=== PATIENT | female | born 1995 | race Two or more races ===

== ENCOUNTER 2017-08-05 19:03 | Inpatient (IN) | payer OTHER ==
[2017-08-05] MEDS: Lactated Ringers 1,000 ML IV SCH ×3 (19:35→20:40)
[2017-08-05] MEDS ORDERED: Bupivacaine 0.75%/D5W 2 ML Amp ONE (19:53)
[2017-08-05] MEDS ORDERED: EPINEPHrine 1 MG/ML SDV ONE (19:53)
[2017-08-05] MEDS ORDERED: fentaNYL 100 MCG/2 ML SDV ONE (19:53)
[2017-08-05] MEDS ORDERED: Penicillin G Potassium 5,000,000 Unit Vial ONE (20:15)
[2017-08-05] MEDS ORDERED: Magnesium Sulfate/Water 100 ML ONE (20:28)
[2017-08-05] MEDS ORDERED: Magnesium Sulfate/Water 50 ML ONE (20:30)
--- NOTE | 2017-08-05 20:38 | PCM.PRNOTE ---
- Free Text/Narrative Note: Requested to provide analgesia to pre-term patient in severe pain. Upon entering the room, patient is lying in bedcomplaining of severe abdominal/ pelvic pain and discomfort. Pt is 30 weeks and complete. MD requests IT to help prevent pushing. Procedure was quickly discussed with patient including adverse outcomes and expectations. Pt consented to analgesia, SAB/IT. Pt placed onto left side. Landmarks for SAB/IT were identified and marked. Hands were washed and appropriate PPE was applied. Back was prepped with betadine x3. A sterile, transparent, fenestrated drape was applied. Excess betadine was removed. Using 3 mL of a 1% lidocaine solution, a skin wheel was placed at the L3/L4 interspace. A 24 ga (4 inch) Pencan spinal needle was inserted until positive for CSF. Negative for heme or paresthesias. Injected fentanyl 20 mcg , sufentanil 15 mcg, and 7.5 mg of a 0.75% bupivacaine solution with an epi wash. Pt was placed left lateral position for approximately 20 minutes. There were zero complications or adverse outcomes. Will continue to monitor. Procedure Date & Time: 08/05/[id number] (30 min)
[2017-08-05] MEDS: Oxytocin/Normal Saline 30 UNIT/500 ML BAG IV SCH (21:09)
[2017-08-05] MEDS ORDERED: Benzocaine/Menthol 20%-0.5% Spray 56 GM Canister TOP PRN (22:25)
[2017-08-05] MEDS ORDERED: Simethicone 80 MG Tab.Chew PO PRN (22:25)
[2017-08-05] MEDS ORDERED: Sodium Chloride 0.9% 10 ML Syringe FLUSH PRN (22:25)
[2017-08-05] MEDS ORDERED: Tranexamic Acid 1,000 MG in Sodium Chloride 0.9% 100 ML IV PRN (22:25)
[2017-08-05] MEDS ORDERED: Misoprostol 400 MCG (4 X 100 MCG TAB) RECTAL PRN (22:25)
[2017-08-05] MEDS ORDERED: Docusate Sodium 100 MG Cap PO PRN (22:25)
[2017-08-05] MEDS ORDERED: Oxytocin 10 Units/1 ML SDV IM PRN (22:25)
[2017-08-05] MEDS ORDERED: Zolpidem 5 MG Tab PO PRN (22:25)
[2017-08-05] MEDS ORDERED: Carboprost Tromethamine 250 MCG/1 ML Amp IM PRN (22:25)
[2017-08-05] MEDS ORDERED: Acetaminophen 325 MG Tab PO PRN (22:25)
[2017-08-05] MEDS ORDERED: Famotidine 20 MG Tab PO PRN (22:25)
[2017-08-05] MEDS ORDERED: Magnesium Sulfate/Water 4 GM in Premix Bag 1 BAG IV ONE (22:29)
[2017-08-05] MEDS ORDERED: Betamethasone Acetate/Betamethasone Sod Phosphate 30 MG/5 ML MDV IM ONE (22:29)
[2017-08-05] MEDS ORDERED: Magnesium Sulfate/Water 2 GM in Premix Bag 1 BAG IV ONE (22:29)
--- NOTE | 2017-08-05 23:15 | DEL ---
DATE: 08/05/2017 LOCATION: [facility]. Please see our dictated history and physical. The patient has come to this facility about 7:30 p.m. in a very active labor and 9 cm dilated with bulging bag of roa, and she is at 30 weeks' gestation, having had all of her care in [place]. She also has noticed vaginal bleeding tonight with her labor. She has actually been blake since about midnight earlier today, but only comes to our facility now at 7:30 p.m. The patient was evaluated, and we have tried to obtain her records from [facility] in [place]. Some of those records have been obtained. Because of her extreme prematurity, betamethasone 12 mg IM was given, and penicillin G was instituted because of her unknown GBS status, and 6 g of magnesium sulfate was administered for neuroprotection. Intrathecal analgesia was also obtained by our HOU[employer]Y SALES STAFF in an effort to try to delay and abolish her expulsive and pushing efforts. The intrathecal was placed by the HOURLY SALES STAFF and did abolish her pushing urge. The team from [facility] was summoned by Dr. Angélica Howell early in the events this evening, and they have been able to arrive in time for the delivery. They actually did arrive just a few minutes before the delivery occurred. The patient had quite a bit of emesis, and with 1 of her emesis episodes, she did proceed on to have a rapid spontaneous vaginal delivery of a viable male at 2103 hours on 08/05/2017. This infant was immediately suctioned upon delivery, and the scores were pending. The weight was later reported as 3 pounds 2 ounces. The baby did have good muscle tone and good pink color and also spontaneous respiratory effort at delivery. A generous sample or segment of umbilical cord was clamped and cut, and while suctioning the baby, he was taken over to the bassinet and warmer. team immediately took over for the supportive and resuscitative efforts. As mentioned above, scores were still pending. A sample of cord blood was obtained. Five minutes after the vaginal delivery, the placenta was delivered spontaneously and intact. Because of a slight amount of uterine atony, IV Pitocin was run initially wide open. This did cause the uterus to contract down nicely, and our estimated blood loss was 400 mL. The placenta was closely inspected and found to be intact. Placenta will be sent to pathology of course. No episiotomy was done, and no lacerations were sustained. Sponge and instrument count was reported as correct. The remains in stable condition at the present time, and the patient herself remains very stable with stable vital signs and normal lochia flow. The patient will be observed very closely and quite possibly we can permit her to go to [facility] tomorrow to be with her baby boy. [facility] /[id number]
[2017-08-05] MEDS ORDERED: Penicillin G Potassium 5 MILLUNITS in Sodium Chloride 0.9% 100 ML IV ONE (23:30)
[2017-08-05] MEDS: Ibuprofen 800 MG Tab PO PRN (23:51)
--- NOTE | 2017-08-06 00:03 | HP ---
LOCATION: [facility]. HISTORY OF PRESENT ILLNESS: This 22-year-old 4, para 2 patient with AB1 was visiting from [place] in the [place] area this weekend. She did roll into Labor and Delivery at about 7:30 p.m. tonight feeling an urge to push, and she was noted to be approximately 9 cm dilated with a bulging bag of roa at that time. Also, she has a history of having some vaginal bleeding for the last 10 to 15 minutes or so. Denies any knowledge of placenta previa or abruption previously. She states that her ultrasounds have been normal in the [place] area. She has been assigned GREGOR of 10/11 or 10/12 by her [facility] providers in [facility]. She would therefore be at 30 weeks' gestation. Regarding her course, she denies any knowledge of complications of significance thus far with this . She apparently had 1 urinary tract infection. Her lab work that we have been able to obtain from [facility] reveals her to be blood type B positive. She was HIV negative. RPR was negative, and the antibody screen was negative. She was negative for hepatitis B surface antigen. She is essentially of unknown GBS status. Apparently, she has been GBS negative with another . She does have history of iron deficiency anemia with this , and I note that tonight her hemoglobin is 10.8 and blood type is B positive as mentioned above. PAST OBSTETRICAL HISTORY: She did have a vaginal delivery at 36 weeks' gestation previously and also a vaginal delivery at 39 weeks' gestation previously. As it pertains to tonight, she states that actually her labor contractions began about midnight last night, which she was having some cramping pain. She apparently [place]. She comes to our Labor and Delivery unit at 7:30 p.m. juvenal. PAST MEDICAL HISTORY: She denies any knowledge of heart, lung, liver, or kidney disease. Apparently, there has been a past depression history. ALLERGIES: None known. PREVIOUS SURGICAL HISTORY: None. MEDICATIONS AT PRESENT: vitamins. FAMILY HISTORY: Noncontributory. SOCIAL HISTORY: She is here with her , and his name is Mayur. He has been working on [employer] while she is up from the [facility] visiting him this weekend. The patient denies smoking and denies alcohol or street drug use with this . PHYSICAL EXAMINATION: Vital Signs: Her initial blood pressure was in the 118/74 range. Pulse was 114. HEENT: The sclerae are nonicteric. Lungs: Clear to A. Heart: Regular rhythm without murmur. Abdomen: Appears about 30-week size, or this is compatible with possibly a 30- week gestation. She does have several paraumbilical markings or scars from previous rings in the abdomen. Pelvic: heart tones are in the 148 to 152 range with moderate variability. heart tones are essentially category 1. Vaginal exam on admission revealed her to be 9 cm dilated with a bulging bag of roa and vertex at about 0 station. Extremities: Negative. IMPRESSION: We do anticipate spontaneous vaginal delivery. We will also utilize intrathecal analgesia in an effort to abolish her pushing effort and expulsive forces. Also, we will commence betamethasone 12 mg IM now and penicillin G prophylaxis because of her unknown GBS status, and we will administer 6 g of magnesium sulfate for neuroprotection of the . All of her questions have been answered as best as possible. Our nurses, Anesthesia, and Respiratory Therapy have all mobilized nicely as we prepare for the upcoming delivery, and it is my understanding that [facility] team is en route to this facility. [facility] /[id number]
[2017-08-06] MEDS: Oxytocin/Normal Saline 30 UNIT/500 ML BAG IV SCH (01:56)
[2017-08-06] MEDS: Ibuprofen 800 MG Tab PO PRN (08:25)
[2017-08-06] MEDS ORDERED: Prenatal Multivitamin with Calcium/Folic Acid/Iron Tab PO SCH (09:00)
--- NOTE | 2017-08-06 12:13 | PCM.DCSUM1 ---
Discharge Summary - Hospital Course Free Text/Narrative:: Teena came in last evening to labor and delivery with abdominal pain and cramping. She had been out enjoying the summer day with her family, and had onset of lower abdominal cramping. Upon arrival, she was found to be nearly 10cm dilated, with intact membranes. She fortunately did not deliver until just after NICU team from [place] arrived, so team was in place to care for baby immediately upon delivery. Baby was taken to NICU at [facility] in [place]. Teena states she is feeling overall well this morning, is of course anxious about her baby. She has tolerated eating, drinking and ambulating this morning without difficulty. - Discharge Data Discharge Date: 08/06/17 Discharge Disposition: Home, Self-Care 01 Condition: Good - Discharge Diagnosis/Problem(s) (1) Vaginal delivery SNOMED Code(s): 554935904 ICD Code: O80 - ENCOUNTER FOR FULL-TERM UNCOMPLICATED DELIVERY Status: Acute Current Visit: Yes Problem Details: vaginal delivery after labor at 30 weeks gestation, no PPROM - Patient Instructions Diet: Regular Diet as Tolerated Activity: As Tolerated Notify Provider of: Nausea and/or Vomiting - Discharge Plan Home Medications: Home Meds Vit No.129/Iron/FA [ Tablet] 1 each PO DAILY 08/05/17 [History] - Discharge Summary/Plan Comment DC Time >30 min.: No Discharge Summary/Plan Comment: 1. We will discharge her today, so she can go and be with her baby at the NICU at [facility]. 2. exam at 6 weeks - Patient Data Vitals - Most Recent: Last Vital Signs Temp 36.6 C 08/06/17 08:00 Pulse 71 08/06/17 08:00 Resp 16 08/06/17 08:00 BP 102/75 08/06/17 08:00 Pulse Ox 99 08/06/17 08:00 Weight - Most Recent: 49.895 kg Lab Results - Last 24 hrs: Laboratory Results - last 24 hr 08/05/17 08/05/17 08/05/17 Range/Units 19:45 19:45 21:05 WBC 16.5 H (5.0-10.0) 10^3/uL RBC 4.26 (4.2-5.4) 10^6/uL Hgb 10.8 L (12.0-16.0) g/dL Hct 33.8 L (37.0-47.0) % MCV 79.3 L (80-100) fL MCH 25.4 L (27.0-34.0) pg MCHC 32.0 L (33.0-35.0) g/dL Plt Count 214 (150-450) 10^3/uL Neut % (Auto) 70.3 (42.2-75.2) % Lymph % (Auto) 20.6 (20.5-50.1) % [place] % (Auto) 8.4 H (2-8) % Eos % (Auto) 0.5 L (1.0-3.0) % Baso % (Auto) 0.2 (0.0-1.0) % Add Manual Diff Yes Neutrophils % (Manual) 73 (42-75) % Lymphocytes % (Manual) 23 (20-50) % Monocytes % (Manual) 3 (2-8) % Eosinophils % (Manual) 1 (1-3) % Urine Opiates Screen Negative (NEGATIVE) Ur Oxycodone Screen Negative (NEGATIVE) Urine Methadone Screen Negative (NEGATIVE) Ur Barbiturates Screen Negative (NEGATIVE) U Tricyclic Antidepress Negative (NEGATIVE) Ur Phencyclidine Scrn Negative (NEGATIVE) Ur Amphetamine Screen Negative (NEGATIVE) U Methamphetamines Scrn Negative (NEGATIVE) Urine MDMA Screen Positive H (NEGATIVE) U Benzodiazepines Scrn Negative (NEGATIVE) Urine Cocaine Screen Negative (NEGATIVE) U Marijuana (THC) Screen Negative (NEGATIVE) Blood Type B POSITIVE Gel Antibody Screen Negative 08/06/17 Range/Units 06:20 WBC 22.7 H (5.0-10.0) 10^3/uL RBC 4.49 (4.2-5.4) 10^6/uL Hgb 11.5 L (12.0-16.0) g/dL Hct 35.1 L (37.0-47.0) % MCV 78.2 L (80-100) fL MCH 25.6 L (27.0-34.0) pg MCHC 32.8 L (33.0-35.0) g/dL Plt Count 238 (150-450) 10^3/uL Neut % (Auto) (42.2-75.2) % Lymph % (Auto) (20.5-50.1) % [place] % (Auto) (2-8) % Eos % (Auto) (1.0-3.0) % Baso % (Auto) (0.0-1.0) % Add Manual Diff Neutrophils % (Manual) (42-75) % Lymphocytes % (Manual) (20-50) % Monocytes % (Manual) (2-8) % Eosinophils % (Manual) (1-3) % Urine Opiates Screen (NEGATIVE) Ur Oxycodone Screen (NEGATIVE) Urine Methadone Screen (NEGATIVE) Ur Barbiturates Screen (NEGATIVE) U Tricyclic Antidepress (NEGATIVE) Ur Phencyclidine Scrn (NEGATIVE) Ur Amphetamine Screen (NEGATIVE) U Methamphetamines Scrn (NEGATIVE) Urine MDMA Screen (NEGATIVE) U Benzodiazepines Scrn (NEGATIVE) Urine Cocaine Screen (NEGATIVE) U Marijuana (THC) Screen (NEGATIVE) Blood Type Gel Antibody Screen Med Orders - Current: Current Medications Acetaminophen (Tylenol) 650 mg PO Q6H PRN PRN Reason: mild pain or fever Benzocaine/Menthol (Dermoplast Pain [facility]) 0 gm TOP Q4H PRN PRN Reason: Perineal comfort measures Carboprost Tromethamine (Hemabate Ds) 250 mcg IM ASDIRECTED PRN PRN Reason: Excessive vaginal bleeding Docusate Sodium (Colace) 100 mg PO BID PRN PRN Reason: Constipation Last Admin: 08/06/17 08:25 Dose: 100 mg Famotidine (Pepcid) 20 mg PO BID PRN PRN Reason: Heartburn Tranexamic Acid 1,000 mg/ (Sodium Chloride) 110 mls @ 660 mls/hr IV ONETIME PRN PRN Reason: Bleeding Oxytocin/Sodium Chloride (Pitocin In Ns 30 Unit/500 Ml) 30 unit in 500 mls @ 2 mls/hr IV TITRATE WILLY; Protocol Last Titration: 08/06/17 02:03 Dose: 0 mls/hr Lactated Ringer's (Ringers, Lactated) 1,000 mls @ 125 mls/hr IV ASDIRECTED WILLY Last Admin: 08/05/17 20:40 Dose: 125 mls/hr Ibuprofen (Motrin) 800 mg PO Q8H PRN PRN Reason: Mild Pain or Fever Last Admin: 08/06/17 08:25 Dose: 800 mg Misoprostol (Cytotec) 800 mcg RECTAL ONETIME PRN PRN Reason: Hemorrhage Oxytocin (Pitocin) 10 unit IM ONETIME PRN PRN Reason: Bleeding Prenat Multivit/Bacteriology Research Assistant/Iron/Folic Ac ( Plus Iron) 1 each PO DAILY WILLY Last Admin: 08/06/17 08:25 Dose: 1 each Simethicone (Simethicone) 80 mg PO Q4H PRN PRN Reason: Gas Sodium Chloride (Saline Flush) 10 ml FLUSH ASDIRECTED PRN PRN Reason: Keep Vein Open Zolpidem Tartrate (Ambien) 5 mg PO BEDTIME PRN PRN Reason: Insomnia Discontinued Medications Betamethasone Acet/Betameth SodPhos (Celestone Soluspan 6 Mg/Ml) 12 mg IM ONETIME ONE Stop: 08/05/17 22:30 Last Admin: 08/05/17 19:40 Dose: 12 mg Bupivacaine HCl/Dextrose (Marcaine 0.75% Spinal) Confirm Administered Dose 2 ml .ROUTE .STK-MED ONE Stop: 08/05/17 19:54 Last Admin: 08/05/17 23:27 Dose: Not Given Epinephrine HCl (Adrenalin) Confirm Administered Dose 1 mg .ROUTE .STK-MED ONE Stop: 08/05/17 19:54 Last Admin: 08/05/17 23:27 Dose: Not Given Fentanyl (Sublimaze) Confirm Administered Dose 100 mcg .ROUTE .STK-MED ONE Stop: 08/05/17 19:54 Last Admin: 08/05/17 23:27 Dose: Not Given Magnesium Sulfate (Magnesium Sulfate 4 Gm In Water 100 Ml) Confirm Administered Dose 100 mls @ as directed .ROUTE .STK-MED ONE Stop: 08/05/17 20:29 Last Admin: 08/05/17 23:28 Dose: Not Given Magnesium Sulfate (Magnesium Sulfate 2 Gm In Water 50 Ml) Confirm Administered Dose 50 mls @ as directed .ROUTE .STK-MED ONE Stop: 08/05/17 20:31 Last Admin: 08/05/17 23:28 Dose: Not Given Magnesium Sulfate 2 gm/ Premix 50 mls @ 25 mls/hr IV ONETIME ONE Stop: 08/06/17 00:28 Last Admin: 08/05/17 20:59 Dose: 25 mls/hr Magnesium Sulfate 4 gm/ Premix 100 mls @ 200 mls/hr IV ONETIME ONE Stop: 08/05/17 22:58 Last Admin: 08/05/17 20:32 Dose: 200 mls/hr Penicillin G Potassium 5 (millunits/ Sodium Chloride) 100 mls @ 200 mls/hr IV ONETIME ONE Stop: 08/05/17 23:59 Last Admin: 08/05/17 20:20 Dose: 200 mls/hr Penicillin G Potassium (Pfizerpen) Confirm Administered Dose 5 millunits .ROUTE .STK-MED ONE Stop: 08/05/17 20:16 Last Admin: 08/05/17 23:30 Dose: Not Given Sufentanil Citrate (Sufenta) Confirm Administered Dose 50 mcg .ROUTE .STK-MED ONE Stop: 08/05/17 19:55 Last Admin: 08/05/17 23:28 Dose: Not Given - Exam General: Reports: Alert, Oriented Lungs: Reports: Clear to Auscultation Cardiovascular: Reports: Regular Rate, Regular Rhythm, No Murmurs GI/Abdominal Exam: Normal Bowel Sounds, Soft, Non-Tender
[2017-08-06] MEDS ORDERED: Bupivacaine 0.75%/D5W 2 ML Amp INJECT ONE (13:12)
[2017-08-06] MEDS ORDERED: fentaNYL 100 MCG/2 ML SDV ITHECAL ONE (13:12)
[2017-08-06] MEDS ORDERED: EPINEPHrine 1 MG/ML SDV ONE (13:12)
== END 2017-08-06 13:13 | disposition home or self-care (01) | DRG 775 ==
LOC: DL.OBCHECK 19:03 → DL.OB 20:11 → UNDOADMOB 20:11 → DL.OB 21:03 → OBSVTOIN 21:03
PROVIDERS: ADMIT Family Medicine; ATTEND Obstetrics & Gynecology
PROC: 10E0XZZ Delivery of Products of Conception, External Approach (ICD-10-PCS; principal; 2017-08-05)
PROC: 3E0R3GC Introduction of Other Therapeutic Substance into Spinal Canal, Percutaneous Approach (ICD-10-PCS; 2017-08-05)
DX: O60.14X0 Preterm labor third trimester with preterm delivery third trimester, not applicable or unspecified (principal); Z3A.30 30 weeks gestation of pregnancy; Z37.0 Single live birth; O62.2 Other uterine inertia; O99.013 Anemia complicating pregnancy, third trimester; D50.9 Iron deficiency anemia, unspecified
CPT/HCPCS: 36415; 51701; 59409; 80305; 85025; 85027; 86850; 86900; 86901; A9270-GY; J0171; J0702; J2540; J2590; J3010; J3475; J7050; J7120